=== PATIENT | male | born 1985 | race Caucasian/White ===

== ENCOUNTER 2020-04-27 11:34 | Emergency (ER) | payer OTHER ==
[2020-04-27 12:02] VITALS: BMI 28.8
[2020-04-27 15:01] LABS: BASO % 0.6 % (0-2.0); EOS % 3.2 % (0-4.5); HEMATOCRIT 55.2 % (35.4-49); HEMOGLOBIN 18.8 GM/dL (11.7-16.9); LYMPH % 24.6 % (8-40); MCH 26.5 pg (25.7-33.7); MEAN CELL VOLUME 77.8 fl (80-96); MEAN PLT VOLUME 8.5 fl (7.5-11.1); MONO % 5.9 % (3.8-10.2); NEUT % 65.7 % (42.8-82.8); PLATELET COUNT 285 K/MM3 (134-434); RDW 15.3 % (11.9-15.9)
[2020-04-27 15:33] LABS: POTASSIUM 4.2 mmol/L (3.5-5.1)
[2020-04-27 15:34] LABS: CALCIUM 9.8 mg/dL (8.5-10.1)
[2020-04-27 15:35] LABS: ALBUMIN 4.3 g/dl (3.4-5.0); BLOOD UREA NITROGEN 12.4 mg/dL (7-18)
[2020-04-27 15:38] LABS: CREATININE 1.1 mg/dL (0.55-1.3)
[2020-04-27 15:39] LABS: BILIRUBIN,TOTAL 0.7 mg/dL (0.2-1); TOT PROT 8.4 g/dl (6.4-8.2)
[2020-04-27 18:39] VITALS: BP 136/91; PULSE 84; TEMP 97.2
== END 2020-04-27 18:35 | disposition home or self-care (01) ==
LOC: JER 11:34
DX: L03.211 Cellulitis of face (principal)
CPT/HCPCS: 36415; 70487-TC; 80053; 85025; 99285-25; Q9967